=== PATIENT | male | born 1990 | race Caucasian/White ===

== ENCOUNTER 2023-08-14 13:33 | Outpatient (CLI) | payer OTHER ==
--- NOTE | 2023-08-14 16:12 | MRI Report ---
PROCEDURE: MRI cervical spine without contrast INDICATIONS: CERVICALGIA TECHNIQUE: Multiplanar multisequential MRI of the cervical spine was obtained without contrast. COMPARISON: None. FINDINGS: Alignment and Curvature: There is normal bony alignment. Bone Marrow: Marrow demonstrates normal overall signal. Spinal Cord: Visualized spinal cord has normal size and signal. No cerebellar tonsillar herniation. Paraspinal Soft Tissues: No paravertebral masses. Prevertebral soft tissues are normal in thickness . C2-C3: Normal in appearance. C3-C4: Disc spaces preserved. Hypertrophic left facet joint results in moderate left and no right fo raminal stenosis appear no central stenosis. C4-C5: Normal in appearance. C5-C6: Normal in appearance. C6-C7: Normal in appearance. C7-T1: Normal in appearance. IMPRESSION: Left facet arthropathy at C3-4 results in moderate left foraminal stenosis. Otherwise unremarkable MR I of the cervical spine Reviewed by: Baljit House MD on 08/14/2023 3:11 PM [facility] Approved by: Baljit House MD on 08/14/2023 3:11 PM [facility] Station ID: [id number]
--- NOTE | 2023-08-14 20:06 | MRI Report ---
PROCEDURE: SHOULDER WO - LT INDICATIONS: LEFT SHOULDER PAIN TECHNIQUE: Noncontrast oblique coronal T2 fast spin echo with fat saturation, oblique sagittal T1 spin echo and T2 fast spin echo with fat saturation, axial T1 spin echo and T2 fast spin echo with fat saturation a nd 3-D gradient echo through the shoulder. COMPARISON: None. FINDINGS: Image quality: Excellent. Rotator cuff: Moderate supraspinatus and infraspinatus tendinosis with low-grade bursal surface frayi ng but no significant tear. The teres minor tendon is intact. There is moderate subscapularis tendino sis and low-grade partial intrasubstance tearing of the superior insertion. There is no significant r otator cuff muscle atrophy. Bones and bursae: No acute trabecular bone injury or fracture. Chronic traction cystic changes are se en in the posterosuperior humeral head. No focal glenohumeral cartilage defect. Mild to moderate dege nerative changes are seen at the acromioclavicular joint with subchondral edema and small marginal os teophytes. Trace subacromial/subdeltoid bursal fluid. No significant glenohumeral joint effusion. Capsule and soft tissues: There is nondisplaced tearing of the superior labrum extending into the pos terosuperior and anterosuperior labrum. The proximal biceps long head tendon is intact. There is mild partial effacement of the fat in the rotator interval. The glenohumeral ligaments are intact. IMPRESSION: 1.Nondisplaced tearing of the superior labrum extending into the anterosuperior and posterosuperior l abrum. 2.Moderate supraspinatus and infraspinatus tendinosis and low-grade bursal surface fraying but no sig nificant tear. 3.Low-grade partial intrasubstance tearing of the subscapularis tendon at the superior insertion supe rimposed on moderate tendinosis. 4.Mild to moderate acromioclavicular joint osteoarthrosis. 5.Partial effacement of the rotator interval fat and mild thickening of the inferior glenohumeral lig ament are nonspecific, but can be seen in the setting of the clinical syndrome of adhesive capsulitis . Reviewed by: Griffin Mathews MD on 08/14/2023 8:05 PM PST Approved by: Griffin Mathews MD on 08/14/2023 8:05 PM [facility] [place] Station ID: [id number]
== END 2023-08-14 13:34 | disposition home or self-care (01) ==
LOC: DI 13:33
DX: S43.432A Superior glenoid labrum lesion of left shoulder, initial encounter (principal); M67.814 Other specified disorders of tendon, left shoulder; M75.112 Incomplete rotator cuff tear or rupture of left shoulder, not specified as traumatic; M19.012 Primary osteoarthritis, left shoulder; M47.812 Spondylosis without myelopathy or radiculopathy, cervical region; M48.02 Spinal stenosis, cervical region